=== PATIENT | female | born 1985 | race Caucasian/White ===

== ENCOUNTER 2019-12-26 14:16 | Emergency (ER) | payer BC, SELFPAY ==
[2019-12-26 14:22] VITALS: BP 148/88; PULSE 76; RESP 16; O2SAT 97; BMI 40.7
--- NOTE | 2019-12-26 14:23 | HMH.EDUTC ---
[facility] – [place] Disposition Clinical Impression: Poison oliva Contact dermatitis Qualifiers: Contact dermatitis type: unspecified Contact dermatitis trigger: unspecified trigger Qualified Code(s): L25.9 - Unspecified contact dermatitis, unspecified cause Disposition: Home, Self-Care Condition on Discharge: Good Instructions: Poison [place], Poison [place], Poison [place], DI for Contact Dermatitis Additional Instructions: Avoid contact with the offending substance (poison oliva). Don't put the topical steroids (triamcinolone) on your face or your groin. Follow up with your regular doctor. GO TO THE ER FOR ANY WORSENING SYMPTOMS OR CONCERNS Prescriptions: methylPREDNISolone [Medrol] 4 mg PO DIRECTED 6 Days #21 [email or web address] Transmission Status: Received by [id number] Triamcinolone Acetonide 1 applicatio TP TIDP PRN 7 Days #1 tube PRN Reason: Itching Transmission Status: Received by [id number] Referrals: Renetta Patrick APRN [Primary Care Provider] - Medical Decision Making - Medical Records Medical records reviewed: No: I reviewed the patient's medical records. - [place] Inquiry Pt receiving controlled substance: No Vital Signs: 12/26/19 14:22 12/26/19 14:46 Temperature 98.1 F Temperature Source Oral Pulse Rate 76 Pulse Rate [Radial] 76 Respiratory Rate 16 116 H Blood Pressure 148/88 H Blood Pressure [Right Arm] 148/88 H Blood Pressure Mean [Right Arm] 108 Blood Pressure Source Automatic Cuff Blood Pressure Source [Right Arm] Automatic Cuff Blood Pressure Position Sitting Blood Pressure Position [Right Arm] Sitting 02 Sat by Pulse Oximetry 97 Oxygen Delivery Method Room Air Room Air [facility] [place] HPI - General Stated complaint: allergic reaction Time Seen by Provider: 12/26/19 14:27 - History of Present Illness Provider Complaint: She states that around 1 week ago, she was cleaning up brush and cutting weeds when she began to itch. Now she has a rash on both her forearms. - Related Data Previous Rx's Medication Instructions Recorded Phenazopyridine HCl [Pyridium 200 pow PO TID #6 tab 04/14/19 200mg Tablet] Sulfamethoxazole/Trimethoprim 1 each PO BID 7 Days #14 tab 04/14/19 [Bactrim DS tablet] Triamcinolone Acetonide 1 applicatio TP TIDP PRN 7 Days #1 12/26/19 tube methylPREDNISolone [Medrol] 4 mg PO DIRECTED 6 Days #21 12/26/19 tab.[email or web address] Allergies Allergy/AdvReac Type Severity Reaction Status Date / Time No Known Allergies Allergy Verified 04/14/19 15:59 [facility] History - Hepatitis A Screen Attestation statement:: This patient has been screened for Hepatitis A risk factors. I have reviewed the patient's past medical history: Yes - Social History Alcohol Intake: never Occupational Status: other ROS Obtained: Yes All systems reviewed & no additional complaints - Constitutional Constitutional: Denies chills, Denies fever(s) - Eyes Eyes: Denies eye discharge, Denies itchy eyes - ENT Ears, Nose, Mouth, and Throat: Denies dizziness, Denies otalgia, Denies sore throat - Cardiovascular Cardiovascular: Denies chest pain - Respiratory Respiratory: No chest congestion, No cough, No dyspnea, No stridor, No wheezing - Musculoskeletal Musculoskeletal: Denies joint pain, Denies back pain - Integumentary/Breasts Skin/Breast: Reports as per HPI Physical Exam - General General appearance: alert, in no apparent distress - Head Head exam: atraumatic, normocephalic, normal inspection - Eye Eye exam: Present: normal appearance, PERRL, EOMI - ENT ENT exam: Present: normal exam, normal oropharynx, mucous membranes moist, TM's normal bilaterally, normal external ear exam - Neck Neck exam: Present: normal inspection, full ROM, trachea midline. Absent: meningismus, lymphadenopathy - Chest Chest inspection: Present: normal inspection, symmetric chest wall rise. Absent: tenderness - Respiratory Respiratory exam: Present: norm
[2019-12-26 14:46] VITALS: BP 148/88; PULSE 76; RESP 116; TEMP 36.7; O2SAT 97
== END 2019-12-26 14:46 | disposition home or self-care (01) ==
PROVIDERS: Emergency Provider Nurse Practitioner Family; PCP Nurse Practitioner Family
DX: L23.7 Allergic contact dermatitis due to plants, except food (principal)
CPT/HCPCS: 99201

== ENCOUNTER 2020-07-27 12:39 | Emergency (ER) | payer BC, SELFPAY ==
[2020-07-27 12:41] VITALS: BP 148/80; PULSE 84; RESP 16; TEMP 36.5; O2SAT 100; BMI 36.9
--- NOTE | 2020-07-27 13:01 | HMH.EDUTC ---
[facility] [place] Disposition Clinical Impression: Upper respiratory infection Qualifiers: URI type: unspecified viral URI Qualified Code(s): J06.9 - Acute upper respiratory infection, unspecified Disposition: Home, Self-Care Condition on Discharge: Good Instructions: DI for Viral Upper Respiratory Infection -- Adult Additional Instructions: Rest, fluids Prescriptions: predniSONE [Prednisone 20mg Tab] 20 mg PO BID 5 Days #10 tab Transmission Status: Pending to [id number] Cetirizine HCl/Pseudoephedrine [Zyrtec-D Tablet] 1 each PO BID PRN 10 Days #20 tab.er.12h PRN Reason: Congestion Transmission Status: Pending to [id number] Referrals: PCP,No [Primary Care Provider] - Forms: Work/School Release Time of Disposition: 13:04 Medical Decision Making - [place] Inquiry Pt receiving controlled substance: No Vital Signs: 07/27/20 12:41 Temperature 97.7 F Temperature Source Oral Pulse Rate [Right] 84 Respiratory Rate 16 Blood Pressure [Right Arm] 148/80 H Blood Pressure Mean [Right Arm] 102 Blood Pressure Source [Right Arm] Automatic Cuff Blood Pressure Position [Right Arm] Sitting 02 Sat by Pulse Oximetry 100 Oxygen Delivery Method Room Air - Lab Data Lab results reviewed: Yes: I reviewed the patient's lab results. [facility] [place] HPI - General Stated complaint: possible strep Time Seen by Provider: 07/27/20 13:01 Mode of Arrival: Ambulatory Source of Information: Patient Limitations: No Limitations Description of Symptoms (Recalled from Triage Doc. by RN): pt thinks she may have strep throat HEENT Symptoms (Recalled from RN notes): Yes Resp Symptoms (Recalled from RN notes): No Skin Symptoms (Recalled from RN notes): No MS Symptoms (Recalled from RN notes): No Functional Status (Recalled from RN notes): na - History of Present Illness Provider Complaint: Patient states she has felt poorly for a day or two. No fever. Has headache, sore throat and has been exposed to strep. Also tired. No body aches or chills. Onset (ago): day(s) (1) Relieving factors: none Exacerbating factors: none Associated symptoms: denies other symptoms Treatments prior to arrival: none - Related Data Previous Rx's Medication Instructions Recorded Phenazopyridine HCl [Pyridium 200 pow PO TID #6 tab 04/14/19 200mg Tablet] Sulfamethoxazole/Trimethoprim 1 each PO BID 7 Days #14 tab 04/14/19 [Bactrim DS tablet] Triamcinolone Acetonide 1 applicatio TP TIDP PRN 7 Days #1 12/26/19 tube methylPREDNISolone [Medrol] 4 mg PO DIRECTED 6 Days #21 12/26/19 tab.[email or web address] Cetirizine HCl/Pseudoephedrine 1 each PO BID PRN 10 Days #20 07/27/20 [Zyrtec-D Tablet] tab.er.12h predniSONE [Prednisone 20mg 20 mg PO BID 5 Days #10 tab 07/27/20 Tab] Allergies Allergy/AdvReac Type Severity Reaction Status Date / Time No Known Allergies Allergy Verified 04/14/19 15:59 - Worker's Comp Is this a Worker's Comp case?: No H History - Hepatitis A Screen Drug use history?: No High risk sexual behaviors?: No History of sexually transmitted infection?: No Currently employed?: No Childcare worker?: No Do you have indoor plumbing?: Yes Do you have electricity?: Yes Attestation statement:: This patient has been screened for Hepatitis A risk factors. I have reviewed the patient's past medical history: Yes - Social History Alcohol Intake: never Occupational Status: other ROS Obtained: Yes All systems reviewed & no additional complaints - Constitutional Constitutional: Reports headache(s), Reports malaise - ENT Ears, Nose, Mouth, and Throat: Reports sore throat Physical Exam - General General appearance: alert, in no apparent distress - Head Head exam: normocephalic - Eye Eye exam: Present: PERRL - Expanded ENT Exam Nose exam: Absent: sinus tenderness Throat exam: Present: other (PND) - Neck Neck exam: Absent: lymphadenopathy - Chest Chest inspection: Present: symmetric chest
[2020-07-27 13:08] VITALS: BP 142/70; PULSE 65; RESP 16; TEMP 36.7; O2SAT 98
[2020-07-27 18:38] LABS: UTC Strep Screen (Rapid) Negative (Negative)
== END 2020-07-27 13:09 | disposition home or self-care (01) ==
PROVIDERS: Emergency Provider Physician Assistant
DX: J06.9 Acute upper respiratory infection, unspecified (principal)
CPT/HCPCS: 87880; 99202; G0463